=== PATIENT | female | born 1955 | race Caucasian/White ===

== ENCOUNTER → 2020-11-26 | Outpatient (CLI) | payer OTHER, MEDICARE ==
--- NOTE | 2020-11-26 09:36 | RAD ---
EXAM: Bilateral digital diagnostic mammogram with tomosynthesis; left breast sonogram. HISTORY: 65-year-old female presents for bilateral mammography. The patient did not return for additi onal mammographic and sonographic imaging recommended on the report from the prior screening mammogra m dated 07/02/2015. Therefore, diagnostic mammography and left breast sonography was performed at this time. TECHNIQUE: Full-field digital craniocaudal and mediolateral oblique 2D and 3D tomosynthesis images of both breasts are obtained for evaluation. Computer aided detection was applied. Sonographic imaging of the left breast targeted to sites of mammographic nodularity was also performed COMPARISON: 07/02/2015, 04/06/2014, 09/30/2013, 09/11/2013 BREAST PARENCHYMAL DENSITY: Level B - Scattered fibroglandular densities. FINDINGS: There is no new suspicious mass, microcalcification or region of architectural distortion. There are stable areas of nodularity and asymmetry within both breasts, predominantly within the medi al aspect of the left breast. The long-term stability favors benignity. There are few benign calcific ations. Sonographic imaging of the left breast targeted to sites of mammographic nodularity demonstrates a 3 mm cyst with internal echoes at the 8:00 position 5 cm from the nipple, a similar-appearing 3 mm cyst with internal echoes at the 8:00 position 3 cm from the nipple, and a similar-appearing 3 mm cyst wi th internal echoes at the 2:00 position 3 cm the nipple. These correspond with areas of mammographic nodularity. No suspicious sonographic lesion is seen. IMPRESSION: 1. No new suspicious mammographic finding. 2. Tiny benign cysts with suspected internal debris within the left breast. There is no suspicious so nographic finding. 3. BI-RADS Category 2: Benign finding(s). RECOMMENDATION: Annual mammography is recommended. If your mammogram demonstrates that you have dense breast tissue, which could hide abnormalities, and if you have other risk factors for breast cancer that have been identified, you might benefit from s upplemental screening tests that may be suggested by your ordering physician. Dense breast tissue, i n and of itself, is a relatively common condition. This information is not provided to cause undue c oncern, but rather to raise your awareness and to promote discussion with your physician regarding th e presence of other risk factors, in addition to dense breast tissue. A report of your mammography re sults will be sent to you and your physician. You should contact your physician if you have any ques tions or concerns regarding this report. Mammography is a sensitive method for finding small breast cancers, but it does not detect them all a nd is not a substitute for careful clinical examination. A negative mammogram does not negate a clin ically suspicious finding and should not result in delay in biopsying a clinically suspicious abnorma lity. PQRS compliance statement - Patient information was entered into a reminder system with a target due date for the next mammogram. "Our facility is accredited by the [employer] Mammography [employer]." Electronically signed by: Virgen Santos MD (11/26/2020 9:33 AM) [id number]
== END ==
LOC: MAMMO 08:27
PROVIDERS: ATTEND Family Medicine
DX: N60.02 Solitary cyst of left breast (principal)
CPT/HCPCS: 76641; 77066; G0279; 77062